=== PATIENT | male | born 1965 | race Caucasian/White ===

== ENCOUNTER 2022-07-06 21:13 | Emergency (ER) | payer BC ==
[~2022-07-06] VITALS: Ht 175.3 cm; Wt 90.7 kg
[2022-07-06 21:25] VITALS: BP_SYST 133
--- NOTE | 2022-07-06 21:29 | NUR ---
STATES WAS WALKING DOGS APROX 30 MIN AGO AND FELL FROM STANDING POSITION, NO LOC, DID NOT HIT HEAD. ABRASION NOTED TO RIGHT KNEE AND BLEEDING CONTROLLED FROM WOUND ON RIGHT FOOT. NO DISTRESS AT THIS TIME.
[2022-07-06 23:00] VITALS: BP_SYST 133
[2022-07-06] MEDS ORDERED: LIDOCAINE 1% 10 MG/ML, 20 ML MDV INJ ONE (23:45)
[2022-07-06] MEDS ORDERED: DIPHTH,PERTUSS(ACELL),TET VAC 0.5 ML VIAL (Tdap) I.M. ONE (23:45)
[2022-07-06] MEDS ORDERED: CEPH250C PO (23:49)
--- NOTE | 2022-07-07 00:02 | NUR ---
MD Duggan at bedside performing laceration repair to patient's right foot
[2022-07-07] MEDS ORDERED: BACITRACIN 1 GM OINT TP ONE (00:18)
--- NOTE | 2022-07-07 00:33 | NUR ---
Patient given written and verbal discharge instructions and verbalizes understanding. ER MD discussed with patient the results and treatment provided. Patient in stable condition. ID arm band removed. IV catheter removed intact and dressing applied, no active bleeding. Rx of N/A given. Patient educated on pain management and to follow up with PMD. Pain Scale . Opportunity for questions provided and answered. Medication side effect fact sheet provided.
--- NOTE | 2022-07-07 00:44 | NUR ---
BACITRACIN APPLIED TO WOUND PRIOR TO APPLICATION OF NONADHESIVE DRESSING AND RAMIN WRAP COMPRESSION DRESSING.
== END 2022-07-07 00:33 | disposition home or self-care (01) ==
LOC: SED 21:13
DX: S91.311A Laceration without foreign body, right foot, initial encounter (principal); S80.211A Abrasion, right knee, initial encounter; I10 Essential (primary) hypertension; Z79.899 Other long term (current) drug therapy; W19.XXXA Unspecified fall, initial encounter; Y93.89 Activity, other specified; Y92.89 Other specified places as the place of occurrence of the external cause; Y99.8 Other external cause status
CPT/HCPCS: 99283; 90715; 90471; 12002; J2001